=== PATIENT | male | born 1940 | race Caucasian/White ===

== ENCOUNTER → 2018-04-17 | Outpatient (CLI) | payer MEDICARE ==
[~2018-04-17] MED LIST: APAP500 PO; ASA5UEC PO; ATORVASTATIN CA40 MG PO; CARDURA4 MG PO; CIPROFLOXACIN500 M1 PO; ERYTHROMYCIN250 MG PO; FLAGYL500 MG PO; HYDROCHLOROTHIA25 M1 PO; HYDROCODONE-APA1 TA1 PO; KLOR-CON 1010 MEQ PO; LASIX 20 MG TAB20 MG PO; LEVAQUIN 500 M500 M2 PO; LISINOPRIL10 MG PO; LOPRESSOR25 PO; MS CONTIN15 MG PO; OMEPRAZOLE 20 M20 M1 PO; OXYCODONE HCL 55 MG PO; PACERONE 200 M200 M1 PO; PERCOCET 5-3251 EACH PO; POTASSIUM20 PO; PROBIOTIC1 EAC1 PO; PROSCAR 5MG TABL5 MG PO; PROTONIX40 M1 PO; VITAMIN B-12500 MCG PO; ZANAFLEX4 MG PO
[2018-04-17 13:25] LABS: ABSOLUTE EOSINOPHILS 0.4 thou/uL (0.0-0.7); ABSOLUTE LYMPHOCYTES 1.4 thou/uL (0.8-5.3); ABSOLUTE MONOCYTES 0.3 thou/uL (0.0-1.2); ABSOLUTE NEUTROPHILS 3.3 thou/uL (1.6-8.1); BASOPHILS 0.7 %; EOSINOPHILS 7.7 %; HEMATOCRIT 35.3 % (42.0-52.0); HEMOGLOBIN 11.8 gm/dL (14.0-18.0); LYMPHOCYTES 25.9 %; MCH 32.6 pg (26.0-34.0); MCHC 33.5 g/dL (28.0-37.0); MCV 97.3 fL (80.0-100.0); MONOCYTES 5.8 %; MPV 8.9 fl. (7.2-11.1); NUCLEATED RBCS 0 /100WBC; PLATELET COUNT* 117 thou/uL (150-400); POLYS 59.9 %; RBC 3.62 mil/uL (4.50-6.00); RDW-CV 15.9 % (10.5-14.5); WBC 5.6 thou/uL (4.0-11.0)
[2018-04-17 13:32] LABS: INR 1.1
[2018-04-17 13:36] LABS: ALBUMIN 3.6 g/dL (3.4-5.0); CREATININE 1.7 mg/dL (0.6-1.3); POTASSIUM 4.3 mmol/L (3.5-5.1); TOTAL BILIRUBIN 0.7 mg/dL (<0.1-1.0); TOTAL PROTEIN 6.5 g/dL (6.4-8.2)
== END ==
LOC: M.LAB 13:04
PROVIDERS: Nurse Practitioner Adult Health
DX: K21.9 Gastro-esophageal reflux disease without esophagitis (principal); D64.9 Anemia, unspecified; K57.90 Diverticulosis of intestine, part unspecified, without perforation or abscess without bleeding; K22.70 Barrett's esophagus without dysplasia

== ENCOUNTER → 2018-08-21 | Outpatient (CLI) | payer MEDICARE ==
[2018-08-21 15:06] LABS: ABSOLUTE BASOPHILS 0.1 thou/uL (0.0-0.2); ABSOLUTE EOSINOPHILS 0.4 thou/uL (0.0-0.7); ABSOLUTE LYMPHOCYTES 1.8 thou/uL (0.8-5.3); ABSOLUTE MONOCYTES 0.4 thou/uL (0.0-1.2); ABSOLUTE NEUTROPHILS 3.7 thou/uL (1.6-8.1); EOSINOPHILS 6.8 %; HEMATOCRIT 35.5 % (42.0-52.0); LYMPHOCYTES 28.8 %; MCH 32.6 pg (26.0-34.0); MCHC 33.7 g/dL (28.0-37.0); MCV 96.7 fL (80.0-100.0); MONOCYTES 6.4 %; MPV 9.1 fl. (7.2-11.1); NUCLEATED RBCS 0 /100WBC; PLATELET COUNT* 131 thou/uL (150-400); RBC 3.67 mil/uL (4.50-6.00); RDW-CV 15.9 % (10.5-14.5); WBC 6.4 thou/uL (4.0-11.0)
[2018-08-21 15:43] LABS: ALBUMIN 3.9 g/dL (3.4-5.0); CALCIUM 8.7 mg/dL (8.5-10.1); CREATININE 1.7 mg/dL (0.6-1.3); POTASSIUM 4.6 mmol/L (3.5-5.1); TOTAL BILIRUBIN 0.6 mg/dL (<0.1-1.0); TOTAL PROTEIN 6.4 g/dL (6.4-8.2)
== END ==
LOC: M.LAB 14:40
PROVIDERS: Internal Medicine Gastroenterology
DX: K21.9 Gastro-esophageal reflux disease without esophagitis (principal)

== ENCOUNTER → 2018-12-09 | Outpatient (CLI) | payer MEDICARE | LOC: M.RAD 14:36 | DX: Z79.899 Other long term (current) drug therapy (principal); Z91.89 Other specified personal risk factors, not elsewhere classified; Z97.8 Presence of other specified devices ==

== ENCOUNTER 2021-04-20 22:23 | Emergency (ER) | payer MEDICARE ==
[~2021-04-20] VITALS: Ht 180.3 cm; Wt 124.7 kg
[2021-04-20] MEDS ORDERED: TORSEMIDE20 MG PO (22:37)
[2021-04-20] MEDS ORDERED: BUPROPION XL300 MG PO (22:38)
[2021-04-20 23:03] LABS: ABSOLUTE EOSINOPHILS 0.1 thou/uL (0.0-0.7); ABSOLUTE LYMPHOCYTES 0.7 thou/uL (0.8-5.3); ABSOLUTE MONOCYTES 0.3 thou/uL (0.0-1.2); ABSOLUTE NEUTROPHILS 5.2 thou/uL (1.6-8.1); BASOPHILS 0.6 %; EOSINOPHILS 1.6 %; HEMATOCRIT 32.4 % (42.0-52.0); HEMOGLOBIN 11.2 gm/dL (14.0-18.0); LYMPHOCYTES 10.4 %; MCH 32.7 pg (26.0-34.0); MCHC 34.5 g/dL (28.0-37.0); MCV 94.8 fL (80.0-100.0); MONOCYTES 4.1 %; MPV 9.3 fl. (7.2-11.1); NUCLEATED RBCS 0 /100WBC; PLATELET COUNT* 96 thou/uL (150-400); POLYS 83.3 %; RBC 3.42 mil/uL (4.50-6.00); RDW-CV 15.9 % (10.5-14.5); WBC 6.3 thou/uL (4.0-11.0)
[2021-04-20 23:11] LABS: CALCIUM 8.3 mg/dL (8.5-10.1); CREATININE 2.3 mg/dL (0.6-1.3)
[2021-04-20 23:15] LABS: ALBUMIN 3.7 g/dL (3.4-5.0); MAGNESIUM 1.9 mg/dL (1.8-2.4); TOTAL BILIRUBIN 0.9 mg/dL (<0.1-1.0); TOTAL PROTEIN 6.5 g/dL (6.4-8.2)
[2021-04-20 23:15] LABS: URINE BILIRUBIN NEGATIVE (Negative); URINE BLOOD NEGATIVE (Negative); URINE CLARITY CLEAR; URINE COLOR YELLOW; URINE GLUCOSE-RANDOM NEGATIVE (Negative); URINE KETONES NEGATIVE (Negative); URINE LEUKOCYTES-REFLEX NEGATIVE (Negative); URINE NITRITE-REFLEX NEGATIVE (Negative); URINE PROTEIN NEGATIVE (Negative); URINE SPECIFIC GRAVITY 1.015 (1.005-1.030); URINE UROBILINOGEN 0.2 E.U./dl (0.2-1.0)
[2021-04-20 23:20] LABS: BE -2.2 mmol/L (-2 to +3); PCO2 38.8 mmHg (35.0-45.0); PO2 76.7 mmHg (75.0-100.0); pH 7.383 (7.340-7.450)
[2021-04-21] MEDS ORDERED: ZOFRAN ODT4 MG PO (00:33)
[2021-04-21] MEDS ORDERED: VALIUM2 MG PO (00:33)
[2021-04-21] MEDS ORDERED: ZPAK PO (00:33)
[2021-04-21 01:00] VITALS: BP 122/67
--- NOTE | 2021-04-21 09:49 | EKG ---
[place] [address] ELECTROCARDIOGRAM REPORT Name: JOSEPHINE ESPINOSA Room: [facility]#: [id number] Admission: 04/20/21 Attend Phys: Discharge: 04/21/21 Date of : 40 Date of Service: 04/20/212233 Report #: [id number] THIS REPORT FOR: //name// [facility] ED Test Date: 2021-04-20 Test Time: 22:34:36 Pat Name: JOSEPHINE ESPINOSA Department: Room: Gender: Manager [employer] Safety: : 1940 Requested By: Virginia Ireland Order Number: [id number] MD: Chung Mohr Measurements Intervals [place] Rate: 89 P: [place]: QRS: -65 QRSD: 115 T: 55 QT: 406 QTc: 495 Interpretive Statements Atrial fibrillation Nonspecific IVCD with LAD Inferior infarct, old Anteroseptal infarct, old Compared to ECG 03/29/2016 03:15:47 Sinus rhythm no longer present Myocardial infarct finding still present Electronically Signed On 04-21-2021 9:49:30 CDT by Chung Mohr [email or web address] <ELECTRONICALLY SIGNED> By: Chung Mohr MD, [facility] 04/21/21 0949 [id number] 33 Chung Mohr MD, [facility] /EPI
== END 2021-04-21 01:00 | disposition home or self-care (01) ==
LOC: M.ERS 22:23
PROVIDERS: Personal Emergency Response Attendant
DX: R11.2 Nausea with vomiting, unspecified (principal); R42 Dizziness and giddiness; Z20.822 Contact with and (suspected) exposure to COVID-19; N18.9 Chronic kidney disease, unspecified; Z88.0 Allergy status to penicillin; Z88.2 Allergy status to sulfonamides; Z88.1 Allergy status to other antibiotic agents; Z79.82 Long term (current) use of aspirin; Z79.84 Long term (current) use of oral hypoglycemic drugs; Z79.899 Other long term (current) drug therapy; Z90.49 Acquired absence of other specified parts of digestive tract; Z98.890 Other specified postprocedural states; Z95.5 Presence of coronary angioplasty implant and graft

== ENCOUNTER → 2021-11-16 | Outpatient (CLI) | payer MEDICARE ==
[~2021-11-16] MED LIST changes: +BUPROPION XL300 MG PO; +TORSEMIDE20 MG PO; +VALIUM2 MG PO; +ZOFRAN ODT4 MG PO; +ZPAK PO
== END ==
LOC: M.LAB 11:40
PROVIDERS: ATTEND Internal Medicine Gastroenterology
DX: Z01.812 Encounter for preprocedural laboratory examination (principal); Z20.822 Contact with and (suspected) exposure to COVID-19